=== PATIENT | female | born 1990 | race Caucasian/White ===

== ENCOUNTER 2019-10-30 20:33 | Emergency (ER) | payer MEDICARE, OTHER ==
[2019-10-30 20:37] VITALS: TEMP 98.1
[2019-10-30] MEDS ORDERED: MORPHINE SULFATE 4 MG/ML SYRINGE IM STA (20:48)
[2019-10-30] MEDS ORDERED: DIPH,PERTUS(ACELL)TETVAC-LF 0.5 ML VIAL IM ONE (20:49)
--- NOTE | 2019-10-30 21:11 | ED ---
General Adult HPI - General Chief complaint: Burn/Smoke Inhalation Stated complaint: Burned hand Time Seen by Provider: 10/30/19 20:39 Source: patient, RN notes reviewed, old records reviewed Mode of arrival: ambulatory Limitations: no limitations - History of Present Illness Initial comments: 28-year-old female patient with ENT for chief complaint of burn to right hand. Patient reports that she put her hand on a hot hand. Does not know date of last tetanus. Denies a chance of being . Denies any other complaints. Systemic: Pt denies fatigue, fever/chills, rash. Pt denies weakness, night sweats, weight loss. Neuro: Pt denies headache, visual disturbances, syncope or pre-syncope. HEENT: Pt denies ocular discharge or irritation, otalgia, rhinorrhea, pharyngitis or notable lymphadenopathy. Cardiopulmonary: Pt denies chest pain, SOB, heart palpitations, dyspnea on exertion. Abdominal/GI: Pt denies abdominal pain, n/v/d. : Pt denies dysuria, burning w/ urination, frequency/urgency. Denies new onset urinary or bowel incontinence. MSK: Pt denies myalgia, loss of strength or function in extremities. Neuro: Pt denies new onset weakness, paresthesias. - Related Data Home Medications Medication Instructions Recorded Confirmed Vit 84/Iron/FA 1/Dha 1 each PO DAILY 02/25/16 02/25/16 [Prenate Essential Softgel] Lwx-Ysdn-Axdka Acid 1 cap PO DAILY 02/28/16 02/28/16 [-U Capsule (formulary)] Previous Rx's Medication Instructions Recorded Ibuprofen [Motrin] 600 mg PO Q6HR PRN #60 tab 03/01/16 Bacitracin Oint 28.4 gm TOPICAL BID 14 Days #1 tube 10/30/19 Allergies Allergy/AdvReac Type Severity Reaction Status Date / Time Penicillins Allergy Anaphylaxis Verified 10/30/19 20:37 Review of Systems ROS Statement: Those systems with pertinent positive or pertinent negative responses have been documented in the HPI. ROS Other: All systems not noted in ROS Statement are negative. Past Medical History Past Medical History: No Reported History History of Any Multi-Drug Resistant Organisms: None Reported Past Surgical History: Appendectomy Additional Past Surgical History / Comment(s): tobin Bunionectomy Past Anesthesia/Blood Transfusion Reactions: No Reported Reaction Past Psychological History: No Psychological Hx Reported Smoking Status: Never smoker Past Alcohol Use History: None Reported Past Drug Use History: None Reported - Past Family History Father Family Medical History: Hyperlipidemia, Hypertension Mother Family Medical History: Cancer General Exam - General Exam Comments Initial Comments: Constitutional: NAD, AOX3, Pt has pleasant affect. HEENT: NC/AT, trachea midline, neck supple, no lymphadenopathy. Posterior pharynx non erythematous, without exudates. External ears appear normal, without discharge. Mucous membranes moist. Eyes PERRLA, EOM intact. There is no scleral icterus. No pallor noted. Cardiopulmonary: RRR, no murmurs, rubs or gallops, no JVD noted. Lungs CTAB in anterior and posterior erwin. No peripheral edema. Abdominal exam: Abdomen soft and non-distended. Abdomen non-tender to palpation in all 4 quadrants. Bowel sounds active in LLQ. No hepatosplenomegaly. No ec chymosis Neuro: CN II-XII grossly intact. No nuchal rigidity. No raccon eyes, no woodard sign, no hemotympanum. No cervical spinal tenderness. MSK: superficial burn noted on palmar aspect of first, second third digit on right hand. Non-circumferential. Small amount of superficial partial-thickness burn on radial aspect of fall. Small amount of blistering. All skin is blanchable. Lora are non-circumferential. Clean with soap and water in ED. Capillary refill <2 seconds. No posterior calf tenderness bilaterally, homans sign negative bilaterally. Posterior tibialis and radial pulse +2 bilaterally. Sensation intact in upper and lower extremities. Full active ROM in upper and lower extremities, 5/5 stregnth. Limitations: no limitations Course Vital Signs 10/30/19 20:35 Temperature 98.1 F Pulse Rate 76 Respiratory 22 Rate Blood Pressure 130/83 O2 Sat by Pulse 100 Oximetry Medical Decision Making - Medical Decision Making 28-year-old female patient presents to ED for chief complaint of burn on right hand after putting her hand on a hot pain. Patient vital signs are stable, afebrile. Patient tetanus updated. Physical exam displayed: superficial burn noted on palmar aspect of first, second third digit on right hand. Non-circumferential. Small amount of superficial partial-thickness burn on radial aspect of fall. Small amount of blistering. All skin is blanchable. Lora are non-circumferential. Clean with soap and water in ED. patient will be discharged with bacitracin. Will follow up with primary care provider to ensure proper healing. We'll turn the ER if condition worsens. Case discussed with Dr. Thomas. Disposition Clinical Impression: Superficial burn, Superficial partial thickness burn of hand Disposition: HOME SELF-CARE Condition: Stable Instructions (If sedation given, give patient instructions): Superficial Burn (ED), Second Degree Burn (ED) Additional Instructions: keep area clean and dry. Follow up with primary care provider tomorrow. Ensure that you are seen by her primary care provider multiple times to ensure proper healing. Use antibiotic ointment as directed. Monitor for signs of infection. return to ER if condition worsens in any way. Prescriptions: Bacitracin Oint 28.4 gm TOPICAL BID 14 Days #1 tube Is patient prescribed a controlled substance at d/c from ED?: No Referrals: Annie Pedraza MD [Primary Care Provider] - 1-2 days
[2019-10-30] MEDS ORDERED: IBUPROFEN 600 MG TAB PO STA (21:16)
[2019-10-30] MEDS ORDERED: ACET/COD 300 MG/30 MG STARTER PACK 6 TAB BTL PO STA (21:44)
[2019-10-30 22:08] VITALS: BP 117/68; PULSE 70; RESP 16
== END 2019-10-30 22:06 | disposition home or self-care (01) ==
LOC: EC 20:33
DX: T23.231A Burn of second degree of multiple right fingers (nail), not including thumb, initial encounter (principal); T31.0 Burns involving less than 10% of body surface; Z88.0 Allergy status to penicillin; Z23 Encounter for immunization; X15.8XXA Contact with other hot household appliances, initial encounter; Y92.009 Unspecified place in unspecified non-institutional (private) residence as the place of occurrence of the external cause
CPT/HCPCS: 90715; 99283; 96372; 90471; J2270

== ENCOUNTER → 2021-12-07 | Outpatient (CLI) | payer MEDICARE, OTHER ==
--- NOTE | 2021-12-07 10:03 | US ---
EXAMINATION TYPE: US thyroid st tissue head/neck DATE OF EXAM: 12/07/2021 COMPARISON: NONE CLINICAL HISTORY: R22.1. Patient presents with palpable lump in the lateral right neck. Right lateral neck scanned at area of palpable. Two lymph nodes visualized measuring (1); 1.5 x 0.5 x 0.6 cm, (2); 1.7 x 0.5 x 0.6 cm. IMPRESSION: Nonspecific lymph nodes as noted above.
== END | disposition home or self-care (01) ==
LOC: RADUSWWP 09:28
PROVIDERS: ATTEND Family Medicine
DX: R22.1 Localized swelling, mass and lump, neck (principal)
CPT/HCPCS: 76536